=== PATIENT | female | born 1990 | race Caucasian/White ===

== ENCOUNTER 2017-08-12 09:58 | Emergency (ER) | payer MEDICAID ==
[~2017-08-12 09:58] MED LIST: IBUP600 PO; PERC5TAB12 PO; PRENCAP6 PO
--- NOTE | 2017-08-12 10:44 | PD ---
HPI Chief Complaint Dizziness, tachycardia Date Seen: August 12, 2017 Travel History International Travel<30 Days: No Contact w/Intl Traveler<30Days: No Known Affected Area: No History of Present Illness HPI The patient is a pleasant 27-year-old female at 24/4 weeks gestation presents to OB triage due to dizziness, malaise, and self-reported tachycardia. She states she was out for her daily morning walk around 07:00 this morning when she had to stop and sit down due to feeling short of breath. She says she stood up after sitting down on a bench and felt a little dizzy upon standing, and states she checked her pulse at that time and believes this was around 115 bpm. She states she has felt short of breath since last night, and also reports a nonproductive cough beginning this morning. She denies any recent fevers or other sick symptoms. She reports good PO intake of both solids and liquids lately, states she has been drinking plenty of water. She stays [facility] and may be around other sick contacts. She denies any pleuritic chest pain. Denies any sinus drainage. She denies a history of asthma or other pulmonary disorders. She reports her thus far has been uncomplicated. Para: 1 : 2 History Past Medical History Medical History: Denies Significant Hx Obstetric History Obstetric History Previous uncomplicated term vaginal delivery, 2013 Past Surgical History Narrative Surgical Tympanostomy tube placement as a child Family History Family History: Negative Social History Narrative Social History She denies any current or recent use of substances, denies smoking cigarettes or intake of alcohol She does admit to a history of methamphetamine use, she states her last use was 08/13/2016 Alcohol Use: No Tobacco Use: No Substance Abuse: No Allergies-Medications (Allergen,Severity, Reaction): Coded Allergies: No Known Allergies (Verified , 02/11/14) Home Meds Active Scripts Oxycodone-Acetaminophen 5-325 mg (Percocet 5-325 mg) 1 Tab Tab, 2 TAB PO Q4H Y for PAIN SCALE 5 TO 10, #30 TAB Prov:Pedro Jones MD 02/14/14 Ibuprofen (Motrin 600 Mg Tab) 600 Mg Tab, 600 MG PO Q6H Y for CRAMPING, #30 TAB Prov:Pedro Jones MD 02/14/14 Reported Medications Mv & Min W/Fe Fumarat ( 1) Cap, 1 CAP PO DAILY, CAP 02/11/14 Review of Systems Except as stated in HPI: all other systems reviewed are Neg Physical Exam Narrative GENERAL: Well-nourished, well-developed patient. NAD. Comfortable in bed. SKIN: Warm and dry. HEAD: Normocephalic and atraumatic. EYES: No scleral icterus. No injection or drainage. ENT: No nasal drainage noted. Mucous membranes pink. Airway patent. NECK: Supple, trachea midline. No JVD. CARDIOVASCULAR: Regular rate and rhythm without murmurs, gallops, or rubs. RESPIRATORY: Breath sounds equal bilaterally. No rales or rhonchi. Faint end- expiratory wheezing. No accessory muscle use. ABDOMEN/GI: Abdomen soft, non-tender, bowel sounds present, no rebound, no guarding Gravid to 24 weeks size GENITOURINARY: External Genitalia: intact and normal in appearance Cervix: [-] Dilatation: [-] Effacement: [-] Station: [-] Presentation: [-] Membranes: [-] Uterine Contractions: None FHT's: Category: I Baseline: 140s bpm Reactive: +accels Variability: moderate Decels: none noted EXTREMITIES: No cyanosis or edema. BACK: Nontender without obvious deformity. No CVA tenderness. NEUROLOGICAL: Awake and alert. Motor and sensory grossly within normal limits. Normal speech. Data Data Vital Signs Reviewed: Yes Orders Orders Vital Signs (Adult) .ON ADMISSION (08/12/17 10:42) ^ Labor Status (08/12/17 10:42) Urinalysis - C+S If Indicated (08/12/17 10:42) ^ Non Stress Test (08/12/17 10:42) ^ Hydration (08/12/17 10:42) Cbc No Diff, Includes Plts (08/12/17 10:42) Basic Metabolic Panel (Bmp) (08/12/17 10:42) MDM Medical Record Reviewed: Yes Plan Very pleasant 27-year-old female at 24/4 weeks gestation being evaluated following dizziness, dyspnea, tachycardia following her routine morning walk. 1. Dyspnea, tachycardia - Patient is afebrile, vitals are within normal limits with pulse in the 80s bpm - POx 99-100% - Patient hydrated orally, encouraged good hydration as an outpatient - Discussed symptoms with patient that would warrant a return visit to the OB ED for reevaluation - Hgb 11.5 - UA with sp gravity of 1.009, no ketones, neg LE and nitrites - BMP within normal limits 2. IUP - Category I tracing - No contractions - Continue routine follow up with Dr. Richard Bryant Diagnosis Diagnosis: Primary Impression: Dizziness Additional Impression: 24 weeks gestation of Disposition: 01 DISCHARGE HOME Condition: Stable Patient Instructions: General Instructions Departure Forms: Tests/Procedures Zana Solis MD R2 August 12, 2017 10:44
[2017-08-12 11:42] LABS: HEMATOCRIT 34.5 % (35.0-46.0); HEMOGLOBIN 11.5 GM/DL (11.6-15.3); MEAN CELL VOLUME 77.5 FL (80.0-100.0); MEAN CORPUSCULAR HEMOGLOBIN 25.8 PG (27.0-34.0); MEAN CORPUSCULAR HGB CONC 33.3 % (32.0-36.0); MEAN PLATELET VOLUME 8.3 FL (7.0-11.0); PLATELET COUNT 290 TH/MM3 (150-450); RED BLOOD COUNT 4.45 MIL/MM3 (4.00-5.30); RED CELL DISTRIBUTION WIDTH 14.1 % (11.6-17.2); WHITE BLOOD COUNT 16.3 TH/MM3 (4.0-11.0)
[2017-08-12 11:55] LABS: BICARBONATE 21.2 MEQ/L (21.0-32.0); CALCIUM 8.9 MG/DL (8.5-10.1); CREATININE 0.53 MG/DL (0.50-1.00)
[2017-08-12 11:59] LABS: BACTERIA, URINE RARE /hpf; BILIRUBIN, URINE NEG (NEG); BLOOD, URINE NEG (NEG); GLUCOSE,URINE NEG (NEG); KETONE, URINE NEG (NEG); MUCUS URINE FEW /lpf (OCC); NITRITE,URINE NEG (NEG); SQUAMOUS EPITHELIAL CELL URINE 7 /hpf (0-5); URINE COLOR LIGHT-YELLOW (YELLW/STRAW); URINE LEUKOCYTE ESTERASE NEG (NEG)
== END 2017-08-12 12:57 | disposition home or self-care (01) ==
LOC: HOBED 09:58
DX: O26.892 Other specified pregnancy related conditions, second trimester (principal); R42 Dizziness and giddiness; Z3A.24 24 weeks gestation of pregnancy
CPT/HCPCS: 36415; 80048; 81001; 85027

== ENCOUNTER → 2017-10-07 | Outpatient (CLI) | payer MEDICAID | LOC: CDED 09:47 | PROVIDERS: ATTEND Obstetrics & Gynecology | DX: O24.419 Gestational diabetes mellitus in pregnancy, unspecified control (principal) | CPT/HCPCS: 97802 ==

== ENCOUNTER 2017-11-09 14:51 | Inpatient (IN) ==
--- NOTE | 2017-11-09 16:02 | MH ---
cc: Erma Ramos MD DATE OF ADMISSION: 11/09/2017 DATE OF : 1990 REASON FOR ADMISSION: A 37-1/2 week intrauterine with elevated blood pressure, protein in the urine and 5-pound weight gain in 5 days consistent with preeclampsia without severe features. HISTORY OF PRESENT CONDITION: The patient is a 27-year-old single white female, 2, para 1-0-0-1, with LMP 02/07/2017 and EDC 11/28/2017 by 9-week and 3-day ultrasound, currently at 37 and 2/7 weeks. She has been followed since 9 weeks of . She is currently residing at [facility]. She is adopting the child out and will need housing for her and her daughter Bon once she has graduated from [facility]. She is in the program there. She has been in abstinent-based program and is on no medications at this time other than Zoloft 100 mg in the morning and Vistaril 100 mg h.s. Her drug of choice had been methamphetamine. Her last abuse has been almost 2 years ago. She has had some polyhydramnios, but a normal 3-hour glucose tolerance test. Otherwise the has been unremarkable. She started out with a weight of 216 and her current weight is 252. She started out with a blood pressure 100/60; today it is 140/100. She has 1+ protein in the urine. She appears fairly edematous. She says she cannot fit into any of her clothes. I would say 3+ pitting edema in the legs and 2+ deep tendon reflex. She is not smoking, drinking, or using illicit drugs. Her general history is significant for depression and anxiety. SOCIAL HISTORY: She has smoked cigarettes in the past. OB HISTORY: She has had one vaginal delivery in 2013, 7 pounds, [address] Jones and the daughter's name is Bon. FAMILY HISTORY: Noncontributory. LABORATORY DATA: Her group B Strep is negative. PHYSICAL EXAMINATION: GENERAL: She is an edematous female who appears to be uncomfortable. NECK: She has no thyroid enlargement. LUNGS: Clear. HEART: Regular. ABDOMEN: Fundus is 42. PELVIC: Cervix is 2 cm, 50, soft, midposition. EXTREMITIES: Very edematous and she is not yet hyperreflexic. IMPRESSION: Preeclampsia without severe features at 37-1/2 weeks. Secondary history of methamphetamine use in the past, currently in abstinence-based recovery. PLAN: Proceed with rupture of membranes and Pitocin augmentation if indicated. Risks, benefits, expectations, indications and alternatives have been discussed and she is on her way to [place] at this time. Erma Ramos MD PPC/SB , 03:32 PM , 03:40 PM
[2017-11-09] MEDS ORDERED: Sodium Chlor 0.9% Inj 500 ML IV.SIG PRN (16:07)
[2017-11-09] MEDS ORDERED: Naloxone Inj 0.4 MG/ML Vial IV.PUSH PRN (16:07)
[2017-11-09] MEDS ORDERED: Sod Chloride 0.9% Inj 1,000 ML IV.CONT PRN (16:07)
[2017-11-09] MEDS ORDERED: fentaNYL Citrate Inj 100 MCG/2 ML Ampul IV.PUSH PRN ×2 (16:07)
[2017-11-09] MEDS ORDERED: Oxytocin 30 Units/500ml Premix 30 UNITS/500 ML BAG IV.SIG ONE (16:07)
[2017-11-09] MEDS ORDERED: Citric Acid/Sodium Citrate Liq 30 ML UDC PO SCH (16:15)
[2017-11-09 16:23] LABS: Baso % (Auto) 0.2 % (0.0-2.0); Eos # (Auto) 0.1 th/mm3 (0.0-0.4); Eos % (Auto) 0.7 % (0.0-4.0); Hematocrit 32.6 % (35.0-46.0); Lymph # (Auto) 2.6 th/mm3 (1.0-4.8); Lymph % (Auto) 19.2 % (9.0-44.0); Mean Corpuscular HGB Conc 33.8 % (32.0-36.0); Mean Corpuscular Hemoglobin 24.9 pg (27.0-34.0); Mean Corpuscular Volume 73.7 fL (80.0-100.0); Mean Platelet Volume 8.9 fL (7.0-11.0); Mono # (Auto) 0.7 th/mm3 (0.0-0.9); Mono % (Auto) 4.8 % (0.0-8.0); Neut # (Auto) 10.3 th/mm3 (1.8-7.7); Neut % (Auto) 75.1 % (16.0-70.0); Platelet Count 248 th/mm3 (150-450); Red Blood Count 4.42 mil/mm3 (4.00-5.30); Red Cell Distribution Width 15.4 % (11.6-17.2); White Blood Count 13.7 th/mm3 (4.0-11.0)
[2017-11-09 16:53] LABS: Amorphous Sediment,Urine Rare /hpf; Bilirubin,Urine Negative (Negative); Clarity,Urine Cloudy (Clear); Color,Urine Yellow (Yellw/Straw); Glucose,Urine (UA) Negative (Negative); Leukocyte Esterase,Urine Trace (Negative); Mucus,Urine Few /lpf (Occasional); Nitrite,Urine Negative (Negative); Specific Gravity,Urine 1.015 (1.002-1.035); Squamous Epithelial Cell,Urine 8 /hpf (0-5)
[2017-11-09 16:55] LABS: Amphetamine Urine With Conf Neg (Neg); Benzodiazepine Urine With Conf Neg (Neg)
[2017-11-09] MEDS ORDERED: Penicillin G Potassium Inj 5,000,000 UNIT in Sodium Chloride 0.9% Inj 100 ML IV.SIG ONE (17:00)
--- NOTE | 2017-11-09 18:36 | P.OBLABOR ---
Subjective Interval history: Full H & P dictated 27 yo wf at 37 2/7 weeks sent to L & D with BP 140/100, 5 pound weight gain in five days and 1+ protein. Resident at [facility] abstinence based recovery from methamphetamine use. unremarkable care until BP elevated surveillance reassuring will begin pitocin after AROM she is vanessa every two to three minutes but mild strip is category one pelvis is proven anticipate will treat BPs as indicated no Magnesium at this time Objective Vital Signs: Vital Signs - 8 hr 11/09/17 15:15 11/09/17 15:30 11/09/17 15:44 Temperature Pulse Rate 99 H 107 H Respiratory Rate 18 18 Blood Pressure 132/88 127/90 11/09/17 15:45 11/09/17 16:21 11/09/17 16:31 Temperature 99.1 F Pulse Rate 74 86 Respiratory Rate 18 Blood Pressure 125/82 129/90 11/09/17 17:12 Temperature Pulse Rate Respiratory Rate 18 Blood Pressure Objective: Pelvic Exam: Cervix: [-] Dilatation: [-] Effacement: [-] Station: [-] Presentation: [-] Membranes: [intact or ruptured] Uterine Contractions: [-] FHT's: Category: [-] Baseline: [-] Reactive: [-] Variability: [-] Decels: [-] Assessment and Plan - Diagnosis (1) 37 weeks gestation of Code(s): Z3A.37 - 37 weeks gestation of Status: Acute (2) Pre-eclampsia Code(s): O14.90 - Unspecified pre-eclampsia, unspecified trimester Status: Acute (3) Amphetamine substance use disorder, moderate, in early remission Code(s): F15.21 - Other stimulant dependence, in remission Status: Acute - Plan arom and augment as indicated anticipate and return to [facility]
[2017-11-09] MEDS ORDERED: fentaNYL 2MCG-Bupiv 0.125% Epi 150 ML EPIDURAL ONE ×2 (20:20→20:56)
[2017-11-09] MEDS ORDERED: Penicillin G Potassium Inj 2,500,000 UNIT in Sodium Chlor 0.9% Inj 100 ML IV.SIG SCH (21:00)
[2017-11-09] MEDS ORDERED: fentaNYL Citrate Inj 100 MCG/2 ML Ampul EPIDURAL ONE (21:52)
[2017-11-09] MEDS ORDERED: fentaNYL 2MCG-Bupiv 0.125% Epi 150 ML EPIDURAL PRN (21:52)
[2017-11-10] MEDS ORDERED: Oxytocin 30 Units/500ml Premix 30 UNITS/500 ML BAG IV.SIG PRN (02:46)
--- NOTE | 2017-11-10 08:09 | P.OBLABOR ---
Subjective Interval history: uncomfortable with pressure Objective Vital Signs: Vital Signs - 8 hr 11/10/17 01:16 11/10/17 01:31 11/10/17 01:46 Temperature Pulse Rate 112 H 116 H 119 H Respiratory Rate Blood Pressure 118/68 132/68 120/70 11/10/17 02:15 11/10/17 02:46 11/10/17 03:30 Temperature Pulse Rate 110 H 110 H 110 H Respiratory Rate Blood Pressure 111/56 L 109/53 L 111/57 L 11/10/17 03:45 11/10/17 04:00 11/10/17 04:15 Temperature 98.0 F Pulse Rate 121 H 121 H Respiratory Rate 15 Blood Pressure 117/71 120/73 11/10/17 04:30 11/10/17 05:15 11/10/17 05:30 Temperature Pulse Rate 126 H 141 H 110 H Respiratory Rate Blood Pressure 120/75 108/61 119/72 11/10/17 05:45 11/10/17 06:00 11/10/17 06:46 Temperature 98.4 F Pulse Rate 126 H 75 125 H Respiratory Rate 15 Blood Pressure 119/77 124/80 104/59 L 11/10/17 07:00 11/10/17 07:15 11/10/17 07:31 Temperature Pulse Rate 118 H 143 H 124 H Respiratory Rate 18 Blood Pressure 121/77 119/66 111/69 11/10/17 07:48 Temperature 98.7 F Pulse Rate 124 H Respiratory Rate 18 Blood Pressure 113/69 Objective: cervix complete and -2 adequate pelvis need to bring baby down anticipate Weeks Gestation: 37 Patient Started Active Labor: Yes Medical Induction of Labor: Yes Artificial Rupture of Membrane: Yes Assessment and Plan - Diagnosis (1) 37 weeks gestation of Code(s): Z3A.37 - 37 weeks gestation of Status: Acute (2) Pre-eclampsia Code(s): O14.90 - Unspecified pre-eclampsia, unspecified trimester Status: Acute (3) Amphetamine substance use disorder, moderate, in early remission Code(s): F15.21 - Other stimulant dependence, in remission Status: Acute - Plan arom and augment as indicated anticipate and return to [facility]
[2017-11-10] MEDS ORDERED: Lidocaine PF 1% Inj 10 ML Amp I-DERMAL PRN (08:28)
[2017-11-10] MEDS ORDERED: Bisacodyl 10 MG Supp RECTAL PRN (08:45)
[2017-11-10] MEDS ORDERED: Zolpidem Tartrate 5 MG Tablet PO PRN (08:45)
[2017-11-10] MEDS ORDERED: Naloxone Inj 0.4 MG/ML Vial IV.PUSH PRN (08:45)
[2017-11-10] MEDS ORDERED: Witch Hazel 50%/Glyderin 12.5% 40 Pad Jar RECTAL PRN (08:45)
[2017-11-10] MEDS ORDERED: Oxytocin 30 Units/500ml Premix 30 UNITS/500 ML BAG IV.CONT SCH (08:45)
[2017-11-10] MEDS ORDERED: Benzocaine 20% Top Spray 60 ML Can TOPICAL PRN (08:45)
--- NOTE | 2017-11-10 08:45 | P.OBDELI ---
Weeks Gestation: 37 Anesthesia: Epidural Episiotomy: none Vaginal Delivery: Normal Presentation: Occiput anterior Nuchal Cord: x1 Delayed Cord Clamping (45 sec): Yes Placenta: Spontaneous delivery, Intact, 3 vessel cord Laceration: None : Female (weight and apgars pending Infant lethargic with good sats and will be evaluated. Baby for adoption)
[2017-11-10] MEDS ORDERED: Lidocaine PF 1% Inj 5 ML Vial ONE (11:09)
[2017-11-10] MEDS: Ibuprofen 400 MG Tablet PO PRN ×2 (11:21→20:34)
[2017-11-10] MEDS: Acetaminophen 325 MG Tablet PO PRN ×2 (15:40→20:38)
[2017-11-10] MEDS ORDERED: Diphtheria/Tetanus/Pertussis Vaccine Inj 0.5 ML Syringe IM ONE (16:00)
[2017-11-10] MEDS ORDERED: Measles/Mumps/Rubella Vaccine Inj 0.5 ML Vial SQ ONE (16:00)
[2017-11-10] MEDS: Senna/Docusate Sodium 8.6/50 MG Tablet PO SCH (20:37)
[2017-11-11] MEDS: Acetaminophen 325 MG Tablet PO PRN ×3 (02:41→15:02)
--- NOTE | 2017-11-11 08:40 | P.PNOB ---
Subjective Post day: 1 Interval history: doing well BFA no complaints needs contraception going back to [facility] Objective Vital Signs/I&O: Vital Signs 11/10/17 08:46 11/10/17 08:51 11/10/17 09:01 Temperature 98.6 F Pulse Rate 134 H 150 H Respiratory Rate 18 Blood Pressure 123/59 L 109/64 11/10/17 09:15 11/10/17 09:16 11/10/17 09:30 Temperature Pulse Rate 113 H Respiratory Rate 16 16 Blood Pressure 128/70 11/10/17 09:31 11/10/17 09:45 11/10/17 09:46 Temperature Pulse Rate 104 H 102 H Respiratory Rate 16 Blood Pressure 128/55 L 113/48 L 11/10/17 10:01 11/10/17 10:31 11/10/17 11:00 Temperature 98.0 F Pulse Rate 109 H 98 H 97 H Respiratory Rate 20 Blood Pressure 119/66 116/46 L 109/66 11/10/17 20:35 Temperature 98.2 F Pulse Rate 61 Respiratory Rate 18 Blood Pressure 116/78 Result Diagrams: 11/09/17 15:20 Objective Remarks: GENERAL: Well-nourished, well-developed patient. CARDIOVASCULAR: Regular rate and rhythm without murmurs, gallops, or rubs. RESPIRATORY: Breath sounds equal bilaterally. No accessory muscle use. ABDOMEN/GI: Abdomen soft, non-tender. Fundus: Firm, non-tender at umbilicus. GENITOURINARY: Light to moderate bleeding. EXTREMITIES: No cyanosis or edema, non-tender, without signs of DVT. Medications and IVs: Active Medications Acetaminophen (Tylenol) 650 mg PO Q4H PRN PRN Reason: PAIN SCALE 1 TO 2 Last Admin: 11/11/17 02:41 Dose: 650 mg Al Hydroxide/Mg Hydroxide (Milk Of Magnesia Liq) 30 ml PO Q12H PRN PRN Reason: Mild Constipation Benzocaine (Americaine 20% [place]) 1 spray TOPICAL Q4H PRN PRN Reason: For Perineum Discomfort Bisacodyl (Dulcolax Supp) 10 mg RECTAL DAILY PRN PRN Reason: SEVERE CONSITIPATION Citric Acid/Sodium Citrate (Sodium Citrate/Citric Acid Liq) 30 ml PO SWEETBREAD TRIMMER BACILIO Stop: 11/13/17 16:14 Fentanyl Citrate (Fentanyl Inj) 50 mcg IV.PUSH Q1H PRN PRN Reason: Pain Scale 3 - 5 Fentanyl Citrate (Fentanyl Inj) 100 mcg IV.PUSH Q1H PRN PRN Reason: PAIN SCALE 6 TO 10 Lactated Ringer's (Lr 1000 Ml Inj) 1,000 mls @ 3,000 mls/hr IV.SIG UNSCH PRN PRN Reason: compromise or epidural Last Admin: 11/09/17 21:06 Dose: 3,000 mls/hr Sodium Chloride (Ns Inj) 500 mls @ 1,000 mls/hr IV.SIG UNSCH PRN PRN Reason: SEE LABEL COMMENTS Sodium Chloride (Ns Inj) 1,000 mls @ 100 mls/hr IV.CONT .Q10H PRN PRN Reason: SEE LABEL COMMENTS Lactated Ringer's (Lr 1000 Ml Inj) 1,000 mls @ 125 mls/hr IV.CONT .Q8H BACILIO Last Admin: 11/10/17 05:28 Dose: 125 mls/hr Fentanyl/Bupivacaine/Sodium Chlor (Fentanyl 2 Mcg-Bupiv 0.125% Epi) 150 mls @ 12 mls/hr EPIDURAL PRN PRN PRN Reason: for Labor Pain Last Admin: 11/10/17 07:29 Dose: 12 mls/hr Oxytocin (Pitocin 30 Units/Ns 500 Ml Premix) 30 units in 500 mls @ 1 mls/hr IV.SIG TITRATE PRN; Protocol PRN Reason: For induction of labor Last Admin: 11/10/17 05:28 Dose: 1 milliunit/min, 1 mls/hr Ibuprofen (Motrin) 800 mg PO Q8H PRN PRN Reason: For cramping Last Admin: 11/10/17 20:34 Dose: 800 mg Lactulose (Lactulose Liq) 30 ml PO DAILY PRN PRN Reason: SEVERE CONSITIPATION Lidocaine HCl (Xylocaine 1% Inj) 10 ml INFILTRATN UNSCH PRN PRN Reason: For episiotomy repair Mineral Oil (Muri-Lube Oil) 10 ml TOPICAL UNSCH PRN PRN Reason: PRN perineal massage Naloxone HCl (Narcan Inj) 0.1 mg IV.PUSH Q2M PRN PRN Reason: for opiate reversal Ondansetron HCl (Zofran Odt) 4 mg PO Q6H PRN PRN Reason: NAUSEA OR VOMITING Senna/Docusate Sodium (Sun-Colace) 1 tab PO BID [facility] Last Admin: 11/10/17 20:37 Dose: 1 tab Sennosides (Senokot) 17.2 mg PO Q12H PRN PRN Reason: Moderate Constipation Sodium Chloride (Ns Flush) 2 ml IV.FLUSH PRN PRN PRN Reason: FLUSH AFTER USING IV ACCESS Sodium Chloride (Ns Flush) 2 ml IV.FLUSH BID [facility] Last Admin: 11/10/17 20:48 Dose: Not Given Witch Yudi/Glycerin (Tucks Pads) 1 applicatio RECTAL QID PRN PRN Reason: HEMORRHOIDS Zolpidem Tartrate (Ambien) 5 mg PO HS PRN PRN Reason: SLEEP Assessment and Plan - Diagnosis (1) 37 weeks gestation of Code(s): Z3A.37 - 37 weeks gestation of Status: Acute (2) Pre-eclampsia Code(s): O14.90 - Unspecified pre-eclampsia, unspecified trimester Status: Acute (3) Amphetamine substance use disorder, moderate, in early remission Code(s): F15.21 - Other stimulant dependence, in remission Status: Acute - Plan arom and augment as indicated anticipate and return to [facility] 11/11/17 PPD 1 will need counseling for berievement/adoption [facility] tomorrow see in office in four weeks
[2017-11-11 08:54] VITALS: O2SAT 98
[2017-11-11] MEDS: Senna/Docusate Sodium 8.6/50 MG Tablet PO SCH (09:00)
[2017-11-11 09:58] VITALS: BP 111/75; RESP 16
[2017-11-11] MEDS: Ibuprofen 400 MG Tablet PO PRN (10:51)
[2017-11-11 15:45] VITALS: TEMP 98.1
[2017-11-11 15:51] VITALS: PULSE 84
== END 2017-11-11 15:40 | disposition short-term general hospital (02) ==
LOC: H2E 14:51 → H1EA 11-10 10:54
PROVIDERS: ADMIT Obstetrics & Gynecology; ATTEND Obstetrics & Gynecology